=== PATIENT | male | born 1945 | race Caucasian/White ===

== ENCOUNTER 2019-05-03 05:23 | Emergency (ER) | payer OTHER ==
[2019-05-03] MEDS ORDERED: NA CHLORIDE 0.9% 1,000 ML ONE (06:47)
[2019-05-03 07:24] LABS: Absolute Lymphocytes (CBC) 0.7 K/uL (0.7-4.9); Basophils % 0.2 % (0-1.3); Hematocrit 38.1 % (39.6-49.0); Lymphocytes % 4.2 % (15.3-44.8); MPV 9.9 fL (7.6-11.3); RBC Red Blood Cell Count 4.41 M/uL (4.33-5.43)
[2019-05-03] MEDS ORDERED: FENTANYL CITR 100 MCG/2 ML ONE (07:26)
[2019-05-03 07:31] LABS: Protime INR 1.21
[2019-05-03 07:46] LABS: ALT/SGPT 20 U/L (12-78); AST/SGOT 17 U/L (15-37); Alkaline Phosphatase 60 U/L (45-117); BUN Blood Urea Nitrogen 23 mg/dL (7-18); Bicarbonate 25 mmol/L (21-32); Bilirubin Direct 0.3 mg/dL (0-0.2); Bilirubin Total 1.1 mg/dL (0.2-1.0); CKMB Creatine Kinase MB < 1.0 ng/mL (0.3-3.6); Creatine Phosphokinase 34 U/L (39-308); Glucose Level 123 mg/dL (74-106); Lipase 17 U/L (73-393); Sodium Level 138 mmol/L (136-145); Troponin (Emerg Dept Use Only) < 0.02 ng/mL (0.0-0.045)
[2019-05-03] MEDS ORDERED: CIPROFLOXACIN 400mg IV 400 MG/200 ML BAG IV ONE (07:46)
[2019-05-03] MEDS ORDERED: LIDOCAINE VISCOUS 2% SOLN 15 ML UDC ONE (07:49)
[2019-05-03] MEDS ORDERED: D5 0.45 NS 1,000 ML IV ONE (08:26)
--- NOTE | 2019-05-03 09:02 | RAD REPORT ---
EXAM DESCRIPTION: CT - Abdomen Pelvis W Contrast - 05/03/2019 8:40 am CLINICAL HISTORY: Abdominal pain COMPARISON: none. TECHNIQUE: Computed axial tomography of the abdomen pelvis was obtained. 100 cc Isovue-300 was admin istered intravenously. Oral contrast was not requested which limits evaluation of bowel. All CT scans are performed using dose optimization technique as appropriate and may include automated exposure control or mA/KV adjustment according to patient size. FINDINGS: The pancreas is atrophic. The liver, spleen, adrenals and left kidney are unremarkable There is a mild delay in concentration of contrast within the right kidney. Hydronephrosis is not pre sent. Small low-density areas present within the cortex of the right kidney reaching the periphery. A Martin catheter is present within the bladder. There is no evidence of diverticulitis. Moderate right calcified paracentral disc herniation L3-4 IMPRESSION: Mild right pyelonephritis
--- NOTE | 2019-05-03 09:05 | RAD REPORT ---
EXAM DESCRIPTION: [place] Single View05/03/2019 7:07 am CLINICAL HISTORY: cough COMPARISON: none FINDINGS: The lungs appear clear of acute infiltrate. The heart is normal size IMPRESSION: No acute abnormalities displayed
[2019-05-03 09:07] LABS: Urine Bacteria 20-50 /HPF (NONE SEEN); Urine Culture Reflex Order NOT NEEDED; Urine RBC NONE SEEN /HPF (NONE SEEN)
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
[2019-05-03 09:55] LABS: Urine Blood 2+ (NEG); Urine Glucose 3+ (NEG); Urine Protein 1+ (NEG)
[2019-05-03 18:16] VITALS: O2SAT 97
[2019-05-03 18:18] VITALS: BP 113/59; TEMP 98.3
--- NOTE | 2019-05-04 08:27 | EKG ---
Test Date: 2019-05-03 Test Time: 06:38:09 Candle Extrusion Machine Operator: MARGARET MEASUREMENT RESULTS: Intervals: Rate: 83 VA: 174 QRSD: 134 QT: 412 QTc: 484 [place]: P: 60 VA: 174 QRS: -62 T: 30 INTERPRETIVE STATEMENTS: Sinus rhythm with premature atrial complexes Possible Left atrial enlargement Left axis deviation Right bundle branch block Abnormal ECG No previous ECG available for comparison Electronically Signed On 05-04-19 08:26:19 [address] INTERPRETER by Quoc Adhikari
== END 2019-05-03 11:24 ==
LOC: ER 05:23
DX: N39.0 Urinary tract infection, site not specified (principal); E86.0 Dehydration; D72.829 Elevated white blood cell count, unspecified; I95.9 Hypotension, unspecified; I10 Essential (primary) hypertension; E11.9 Type 2 diabetes mellitus without complications; Z79.4 Long term (current) use of insulin
CPT/HCPCS: 96365; 96361; 93005; 87040 ×2; 87070; 87088; 85025; 87086; 80048; 36415; 82550; 85610; 82947; 80076; 87081; 83605; 85730; 87077; 87186; 84484; 82553; 83690; 84145; 87804 ×2; 74177; 71045; 51702; 96375; 99285; 96366; Q9967; J3010; J7799; J7030; J0744; 81003; 81015

== ENCOUNTER 2022-10-01 16:05 | Emergency (ER) | payer OTHER ==
[2022-10-01 16:35] LABS: Absolute Lymphocytes (CBC) 0.9 K/uL (0.7-4.9); Hematocrit 47.5 % (39.6-49.0); Lymphocytes % 4.3 % (15.3-44.8); MCV 87.8 fL (80-100); MPV 8.8 fL (7.6-11.3); RBC Red Blood Cell Count 5.41 M/uL (4.33-5.43)
--- NOTE | 2022-10-01 16:55 | RAD REPORT ---
EXAM DESCRIPTION: CT - Head Brain Wo Cont - 10/01/2022 4:24 pm CLINICAL HISTORY: AMS, Posturing COMPARISON: No comparisons TECHNIQUE: Noncontrast head CT images ad were obtained without IV contrast. Multiplanar reformats we re generated and reviewed. All CT scans are performed using dose optimization technique as appropriate and may include automated exposure control or mA/KV adjustment according to patient size. FINDINGS: No intracranial hemorrhage, mass, or edema. Midline structures are unremarkable. Normal ventricular caliber for age. Tovar-white matter differentiation is preserved, without evidence of acute infarct. No abnormal extra- axial fluid collections. Mastoid air cells and visualized portions of the paranasal sinuses are clear. No acute bony findings. IMPRESSION: No evidence of an acute intracranial process.
[2022-10-01 17:02] LABS: Albumin 4.4 g/dL (3.4-5.0); Bilirubin Direct 0.3 mg/dL (0-0.2); Magnesium 2.1 mg/dL (1.6-2.4); Potassium 4.4 mEq/L (3.5-5.1); Protein, Total 8.6 g/dL (6.4-8.2)
[2022-10-01 17:03] LABS: Protime INR 1.03
[2022-10-01 17:05] LABS: Specific Gravity 1.029 (1.005-1.030); Urine Bacteria None Seen /HPF (<20); Urine Bilirubin NEGATIVE (Negative); Urine Blood Trace (Negative); Urine Clarity Clear (Clear); Urine Color Light-Yellow (Yellow); Urine Glucose 4+ (Over) (Negative); Urine Mucus Slight /HPF (None Seen); Urine Protein 3+ (Negative); Urine RBC <5 /HPF (None Seen); Urine Urobilinogen Normal (Normal); Urine pH 5.5 (5.0-7.0)
[2022-10-01 17:08] LABS: Troponin High Sensitivity 85.6 pg/mL (<58.9)
--- NOTE | 2022-10-01 17:22 | RAD REPORT ---
EXAM DESCRIPTION: CT - Head angio - 10/01/2022 4:32 pm CLINICAL HISTORY: AMS COMPARISON: Head Brain Wo Cont dated 10/01/2022; Neck Angio dated 10/01/2022 TECHNIQUE: Axial CT angiography images of the head was performed with multiplanar and maximum intens ity projection reconstructions. Images performed following intravenous administration of 100mL Isovue 370. All CT scans are performed using dose optimization technique as appropriate and may include automated exposure control or mA/KV adjustment according to patient size. FINDINGS: No evidence of large vessel occlusion. No evidence of aneurysm or dissection flap is detec tello. No flow-limiting stenosis or vascular malformation identified. Antegrade flow is seen in the vertebral arteries. The vertebral arteries are codominant. The visualized dural venous sinuses are grossly patent. IMPRESSION: No evidence of large vessel occlusion or flow-limiting stenosis.
--- NOTE | 2022-10-01 17:28 | RAD REPORT ---
EXAM DESCRIPTION: CT - Neck Angio - 10/01/2022 4:33 pm CLINICAL HISTORY: AMS COMPARISON: Head angio dated 10/01/2022 TECHNIQUE: Axial CT angiography images of the head was performed with multiplanar and maximum intens ity projection reconstructions. Images performed following intravenous administration of 100mL Isovue 370. All CT scans are performed using dose optimization technique as appropriate and may include automated exposure control or mA/KV adjustment according to patient size. Quantification of carotid stenosis, if any, is performed utilizing NASCET criteria. FINDINGS: A left aortic arch is identified with normal three vessel configuration of the great vesse ls. At least moderate focal stenosis of the proximal right subclavian artery secondary to dense ather osclerotic plaque formation. No significant flow abnormality is seen of the common carotid bilaterally. Mild burden of calcific at herosclerotic plaque along the right CCA. Dense calcified atherosclerotic plaque at the right carotid bifurcation, with narrowest luminal diame ter measuring 1.9 millimeter compared to 4.8 millimeter along the right ICA more distally. This amoun ts to 61 percent stenosis by NASCET criteria. Tortuosity of the proximal right ICA. Moderate calcific atherosclerotic plaque at the left carotid bifurcation without significant ICA stenosis. Normal flow is seen within both vertebral arteries. Multilevel cervical spine degenerative changes. Sequelae of posterior decompression at C4-C6. IMPRESSION: Dense atherosclerotic calcifications at the right carotid bifurcation, with 61% stenosis of the proximal right ICA by NASCET criteria. Moderate atherosclerotic calcific plaque at the left carotid bifurcation, without significant stenosi s. Vertebral arteries are patent.
--- NOTE | 2022-10-01 17:44 | RAD REPORT ---
EXAM DESCRIPTION: RADChest Single View10/01/2022 5:10 pm CLINICAL HISTORY: AMS COMPARISON: Chest Single View dated 05/03/2019 TECHNIQUE: Portable AP view of the chest. FINDINGS: The lungs are clear. No pneumothorax or effusion. The cardiomediastinal contours are uncha nged, again with tortuosity of the thoracic aorta. IMPRESSION: No acute cardiopulmonary process.
[2022-10-01 18:56] LABS: Albumin 4.2 g/dL (3.4-5.0); Bilirubin Total 0.8 mg/dL (0.2-1.0); Potassium 4.2 mEq/L (3.5-5.1); Protein, Total 8.1 g/dL (6.4-8.2)
--- NOTE | 2022-10-01 19:41 | RAD REPORT ---
EXAM DESCRIPTION: CT - Chest Abdomen Pelvis W Cont - 10/01/2022 7:04 pm CLINICAL HISTORY: AMS, leukocytosis COMPARISON: CT abdomen/ Pelvis W Contrast dated 05/03/2019 TECHNIQUE: Thin axial contrast-enhanced CT images of the chest, abdomen, and pelvis were obtained. M ultiplanar reformats were generated and reviewed. Approximately 70 mL Isovue-300 contrast was adminis tered to the patient. All CT scans are performed using dose optimization technique as appropriate and may include automated exposure control or mA/KV adjustment according to patient size. FINDINGS: Mild motion artifact limits evaluation Lungs demonstrate bilateral dependent subpleural gr ound-glass opacities, more pronounced on the right, with a small posterior right apical similar focus . Findings may relate to atelectasis or early airspace disease. No pleural or pericardial effusion.No intrathoracic adenopathy. The liver, spleen, pancreas, adrenal glands and kidneys are within normal limits. Contrast excretion along the urinary tracts limits evaluation for calculi. Pancreas is again atrophic with coarse calcif ications and prominence of the distal main pancreatic duct. 1.9 centimeter cystic lesion in the regio n of the pancreatic head is stable. Colonic diverticulosis. Moderate stool retention in the rectum. No bowel obstruction, free air, free fluid or abscess. No pathologic lymphadenopathy in the abdomen or pelvis. Bladder is suboptimally distended limiting evaluation with Martin catheter in place. No worrisome osseous finding. IMPRESSION: Mild ground-glass opacities in the dependent aspects of the lungs, more pronounced on th e right, could reflect atelectasis or mild airspace disease. No acute abnormalities in the pelvis. Moderate stool retention in the rectum. Colonic diverticulosis. Stable findings suggestive of chronic pancreatitis with a stable small cystic lesion in the region of the pancreatic head.
[2022-10-01 19:45] LABS: Blood Morphology Comment NOT SEEN (NOT SEEN); Platelet Estimate ADEQ; White Blood Cell Scan NEUTROPHILIA (OK)
[2022-10-01] MEDS ORDERED: Ringers Lactate 1,000 ML IV ONE (19:52)
[2022-10-01 20:35] LABS: Appearance CLEAR (CLEAR); Body Fluid Source CSF; Color of fluid Colorless (COLORLESS); Fluid Total Volume 4 ml
[2022-10-01 20:49] LABS: Body Fluid WBC 7 /mm^3
[2022-10-01 21:07] LABS: Appearance CLEAR (CLEAR); Body Fluid Source CSF; Body Fluid WBC 17 /mm^3; Color of fluid Colorless (COLORLESS)
[2022-10-01 21:18] LABS: CSF Glucose 141 mg/dL (40-70)
[2022-10-01] MEDS ORDERED: LORazepam 2 MG/ML VIAL ONE (22:13)
[2022-10-01] MEDS ORDERED: AMPICILLIN SODIUM 2 GM/VIAL VIAL ONE (22:13)
[2022-10-01] MEDS ORDERED: NA CHLORIDE 0.9% 0 ML ONE (22:14)
[2022-10-01] MEDS ORDERED: CEFTRIAXONE 2000 MG/VIAL ONE (22:14)
[2022-10-01] MEDS ORDERED: NA CHLORIDE 0.9% 1,000 ML ONE (22:14)
[2022-10-01] MEDS ORDERED: NA CHLORIDE 0.9% 200 ML ONE (22:14)
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
[2022-10-02] MEDS ORDERED: VANCOMYCIN 500 MG/VIAL ONE (00:03)
[2022-10-02] MEDS ORDERED: VANCOMYCIN 1 GM/VIAL ONE (00:03)
[2022-10-02] MEDS ORDERED: NA CHLORIDE 0.9% 500 ML ONE (00:04)
[2022-10-02] MEDS ORDERED: ACETAMINOPHEN 650MG/RECT SUPP PR ONE (00:08)
[2022-10-02 00:28] LABS: Arterial Blood Carboxyhemoglob 0.8 % (0-1.5); Blood Gas Oxyhemoglobin 89.2 % (94-97); Blood O2 Saturation 91.8 % (92-98.5)
[2022-10-02 03:32] VITALS: BP 138/68; TEMP 99.6; O2SAT 99
--- NOTE | 2022-10-03 12:42 | EKG ---
Test Date: 2022-10-01 Test Time: 16:12:19 Pilot Supervisor: VIKA MEASUREMENT RESULTS: Intervals: Rate: 102 VT: 182 QRSD: 122 QT: 412 QTc: 536 [place]: P: 65 VT: 182 QRS: -81 T: 73 INTERPRETIVE STATEMENTS: Sinus tachycardia Left axis deviation Right bundle branch block Inferior infarct, age undetermined Anterolateral infarct, age undetermined Abnormal ECG Compared to ECG 05/03/2019 06:38:09 Myocardial infarct finding now present Sinus rhythm no longer present Atrial premature complex(es) no longer present Electronically Signed On 10-03-22 12:37:31 CDT by Darius Lion
== END 2022-10-02 02:52 | disposition short-term general hospital (02) ==
LOC: ER 16:05
DX: R41.0 Disorientation, unspecified (principal); A41.9 Sepsis, unspecified organism; E11.9 Type 2 diabetes mellitus without complications; I10 Essential (primary) hypertension; F03.90 Unspecified dementia, unspecified severity, without behavioral disturbance, psychotic disturbance, mood disturbance, and anxiety; Z20.822 Contact with and (suspected) exposure to COVID-19; Z79.4 Long term (current) use of insulin; Z95.818 Presence of other cardiac implants and grafts
CPT/HCPCS: 93005; 87040 ×2; 87070; 85025; 81001; 80048; 36415; 89050 ×2; 83735; 84157; 85610; 82945; 80076; 83605 ×2; 85730; 84484; 80053; 87804 ×2; 70450; 71260; 70496; 70498; 74177; 71045; 82805; 62270; U0003; Q9967 ×2; J0290; J0696; J7120; J7030; 51702; 99285